=== PATIENT | female | born 1950 | race Caucasian/White ===

== ENCOUNTER 2018-06-12 17:20 | Observation (INO) | payer BC, MEDICARE ==
[~2018-06-12] VITALS: Ht 160 cm; Wt 90.3 kg
[2018-06-12] MEDS ORDERED: IV NORMAL SALINE 1,000ML 1,000 ML IV SCH (18:15)
[2018-06-12] MEDS ORDERED: ONDANSETRON ODT 4 MG TAB.RAPDIS PO PRN (18:15)
[2018-06-12] MEDS ORDERED: MORPHINE SULFATE 2 MG/ML DISP.SYRIN. IV PRN (18:15)
[2018-06-12 18:45] LABS: BASO # 0.2 x10^3/uL (0.0-0.2); BASO % 1 % (0-3); EOS # 0.2 x10^3/uL (0.0-0.7); EOS % 1 % (0-3); HEMOGLOBIN 12.8 g/dL (12.0-15.5); LYMPH # 1.9 x10^3/uL (1.0-4.8); LYMPH % 14 % (24-48); MEAN CORPUSCULAR HEMOGLOBIN 32 pg (25-35); MEAN CORPUSCULAR HGB CONC 34 g/dL (31-37); MEAN CORPUSCULAR VOLUME 95 fL (79-100); MONO # 1.5 x10^3/uL (0.0-1.1); MONO % 11 % (0-9); NEUT # 9.6 x10^3uL (1.8-7.7); NEUT % 72 % (31-73); PLATELET COUNT 361 x10^3/uL (140-400); RED BLOOD COUNT 3.98 x10^6/uL (3.50-5.40); RED CELL DISTRIBUTION WIDTH 13.4 % (11.5-14.5); WHITE BLOOD COUNT 13.3 x10^3/uL (4.0-11.0)
[2018-06-12 18:58] LABS: ALBUMIN 3.5 g/dL (3.4-5.0); ALBUMIN/GLOBULIN RATIO 0.9 (1.0-1.7); CALCIUM 9.6 mg/dL (8.5-10.1); CREATININE 1.2 mg/dL (0.6-1.0); GFR 44.8; POTASSIUM 3.4 mmol/L (3.5-5.1); TOTAL BILIRUBIN 0.6 mg/dL (0.2-1.0); TOTAL PROTEIN 7.3 g/dL (6.4-8.2)
--- NOTE | 2018-06-12 19:20 | NUR ---
Pt was direct admit from ER to [facility] room 122 via wheelchair, accompanied by nursing staff. Pt transferred from wheelchair to bed independently, steady gait noted. Pt here for c/o lower abd pain x1 week, ? kidney stone. Pt currently denies pain but states that it comes and goes and can be intense. Pt denies fever, nausea and vomiting. Admission assessment completed. Health history and home medications reviewed with pt. VSS. Pt lives at home alone. SCD for VTE. Pt requesting Pneumonia vaccine. POC reviewed with pt, understanding verbalized. Pt was given written information regarding hospital policies, unit procedures and contact persons. Valuables were checked and left at bedside. Call light within reach. IV started in right AC #20 and IVF started per order. Awaiting CT abd/pel to be done.
[2018-06-12 19:30] VITALS: BP 116/76
[2018-06-12 20:07] VITALS: BP 104/70
[2018-06-12] MEDS ORDERED: MULT1TAB52 PO (21:07)
[2018-06-12] MEDS ORDERED: OMEG-33 PO (21:07)
[2018-06-12] MEDS ORDERED: MULT-55 PO (21:07)
--- NOTE | 2018-06-12 21:31 | RAD ---
CT abdomen pelvis without intravenous contrast History: Right flank and right lower quadrant pain. Hematuria. Comparison: None. Technique: CT of the abdomen and pelvis was performed without intravenous or oral contrast. Exposure: One or more of the following individualized dose reduction techniques were utilized for this examination: 1. Automated exposure control 2. Adjustment of the mA and/or kV according to patient size 3. Use of iterative reconstruction technique Findings: Evaluation of solid organs is limited by lack of intravenous contrast. Evaluation of enteric structures may be limited by lack of oral contrast. Liver demonstrates a 2.7 cm low-density lesion, not adequately characterized on this examination, may be cyst. Pancreas, gallbladder, spleen, and bilateral adrenal glands are unremarkable. Bilateral kidneys and ureters are free stone or obstruction. Urinary bladder is unremarkable. Uterus and adnexa have unremarkable CT appearance. No bowel obstruction is seen. Large amount of inflammation seen in the right lower quadrant. A normal appendix is not identified. Findings are thought to represent changes of acute appendicitis. No free air to suggest perforation is identified at this time. Evaluation for abscess is limited, but no convincing focal fluid collection is identified. Degenerative changes are present in the spine. Dextroconvex scoliosis of the lumbar spine is seen. Impression: 1. Inflammatory change is seen in the right lower quadrant. A normal appendix is not identified. Consequently, findings are thought to represent acute appendicitis. No perforation or convincing abscess is identified at this time given limitations of study. 2. Results were called to the patient's floor nurse, Dasha, at 2128 hours. Electronically signed by: Shin Da Silva MD (06/12/2018 9:28 PM) [facility]
[2018-06-12 21:32] LABS: HYALINE CASTS, URINE MOD /HPF
[2018-06-12 21:33] LABS: CLARITY,URINE CLEAR; COLOR,URINE YELLOW; GLUCOSE,URINE NEG (NEG)
[2018-06-12 21:34] LABS: BACTERIA,URINE FEW /HPF (0-FEW); BILIRUBIN,URINE NEG (NEG); NITRITE,URINE NEG (NEG); SQUAMOUS EPITHELIAL CELL,UR MANY /LPF; UROBILINOGEN,URINE 0.2 mg/dL (0.2 mg/dL)
[2018-06-12 21:47] LABS: % BANDS 2 % (0-9); % BASOS 1 % (0-3); % LYMPHS 12 % (24-48); % MONOS 8 % (0-10); % SEGS 75 % (35-66)
[2018-06-12 21:52] LABS: PLT ESTIMATE INCREASED (ADEQUATE)
[2018-06-12 22:00] LABS: % ATYL 2 % (0-0)
[2018-06-12] MEDS ORDERED: cefTRIAXone IV Push 2 GM VIAL. IVP SCH (22:00)
[2018-06-12 22:44] VITALS: BP 100/67
--- NOTE | 2018-06-12 23:20 | NUR ---
Pt transferred to [facility] room 406 for possible acute appendicitis, needing sx consult. Transfer paperwork and packet completed.Pt given IVP Rocephin & IV Flagyl prior to leaving. Pt still denies need for pain medication. Report called to Aaliyah. EMS here for pick-up. Pt ambulated to [facility] and all belongings sent.
[2018-06-13] MEDS ORDERED: PNEUMOC CONJ VACC 23-VALENT 0.5 ML VIAL. VAX IM ONE (09:00)
--- NOTE | 2018-06-13 22:50 | DS ---
DATE OF DISCHARGE: 06/12/2018 HOSPITAL COURSE: A 67-year-old female who came in with right lower quadrant abdominal pain, also had some blood in her urine when she was initially seen in the office. The patient was taken to the preliminary possible of that of a possible kidney stone, but a stat CT scan demonstrated the patient had acute appendicitis, the patient was transferred to [facility] for surgical consultation without any complications. The patient's labs did show elevated white count of 13,000, and the patient's urine was still pending for culture. Other than that, the patient had an acute appendicitis, hypokalemia, chronic kidney disease, stage 3, and hyperglycemia. PLAN: The patient will be evaluated down there at [facility], transported by EMS. No complications noted. GARRETT MARTINEZ MD DR: SHANNON/syd JOB#: [id number] / [id number]
== END 2018-06-12 23:35 | disposition short-term general hospital (02) ==
LOC: 1 SOUTH 18:01 → INTOOBSV 18:01
PROVIDERS: ADMIT Family Medicine; ATTEND Family Medicine
DX: R10.31 Right lower quadrant pain (principal); E87.6 Hypokalemia; N18.3 Chronic kidney disease, stage 3 (moderate); K35.80 Unspecified acute appendicitis
CPT/HCPCS: 36415; 74176; 80053; 81001; 85007; 85025; 87086; 96361; 96365; 96375; G0378; G0379; J0696; J3490; J7030